=== PATIENT | male | born 1960 | race Caucasian/White ===

== ENCOUNTER 2020-06-11 22:19 | Emergency (ER) | payer MEDICARE, OTHER ==
[~2020-06-11] VITALS: Ht 157.5 cm; Wt 117.9 kg
[2020-06-11 23:34] LABS: BASOPHILS # (AUTO) 0.1 (0.0-0.1); BASOPHILS % 0.4 % (0.0-1.0); EOSINOPHILS # (AUTO) 0.1 (0.0-0.4); EOSINOPHILS % 0.6 % (0.0-6.0); HEMATOCRIT 30.5 % (38.2-49.6); HEMOGLOBIN 9.1 g/dL (14.0-18.0); LYMPHOCYTES # (AUTO) 0.9 (1.0-3.2); LYMPHOCYTES % 7.5 % (18.0-39.1); MEAN CORPUSCULAR HEMOGLOBIN 29.1 pg (28-32); MEAN CORPUSCULAR HGB CONC 29.8 g/dL (31-35); MEAN CORPUSCULAR VOLUME 97.4 fL (81-99); MONOCYTES # (AUTO) 0.9 (0.2-0.8); MONOCYTES % 7.2 % (4.4-11.3); NEUTROPHILS # (AUTO) 10.4 (2.1-6.9); NEUTROPHILS % 82.5 % (38.7-80.0); PLATELET COUNT 298 x10e3/uL (140-360); RED BLOOD COUNT 3.13 x10e6/uL (4.3-5.7); RED CELL DISTRIBUTION WIDTH 13.9 % (11.7-14.4)
--- NOTE | 2020-06-11 23:35 | Diagnostic Imaging Report ---
EXAMINATION: CHEST SINGLE (PORTABLE) INDICATION: ^s/p cpr ^[id number] ^[id number] ^Y COMPARISON: None FINDINGS: AP view TUBES and LINES: Tracheostomy tube in place with tip at the level of clavicles. LUNGS: Limited by low lung volumes and body habitus. Pulmonary gastric congestion and moderate interstitial edema. PLEURA: No significant pleural effusion or pneumothorax. HEART AND MEDIASTINUM: The cardiomediastinal silhouette is enlarged. BONES AND SOFT TISSUES: No acute osseous lesion. Soft tissues are unremarkable. UPPER ABDOMEN: No free air under the diaphragm. IMPRESSION: Limited as above. Enlarged cardiomediastinal silhouette, pulmonary vascular congestion, and moderate pulmonary edema. Underlying pneumonia cannot be excluded. Signed by: Dr. Juan Ramon Stephens MD on 06/11/2020 11:32 PM
[2020-06-11 23:38] LABS: INR 1.07; PROTHROMBIN TIME 14.4 seconds (11.9-14.5)
--- NOTE | 2020-06-11 23:38 | Emergency Department Note ---
History of Present Illnes History of Present Illness Chief Complaint: General Medicine Complaints History of Present Illness This is a 60 year old male RESENTS TO ED AAOX3 FOLLOWING REPORTED CARDIAC ARREST WITH 7 MINUTES OF CPR PERFORMED PER MEDICAL RESORT STAFF; MEDICAL RESORT NURSE STATES, "I COULDNT FIND HIS PULSE, SO I HAD NO OTHER OPTION BUT TO START CPR." PT REPORTS CHEST PAIN RELATED TO CHEST COMPRESSIONS, REPORTS INSTRUCTED STAFF TO STOP COMPRESSIONS;. EMS REPORTED PT DID NOT RESPOND TO STERNAL RUB ON THEIR ARRIVAL BUT BECAME ALERT WHEN THEY WERE MOVING HIM TO STRETCHER. 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 Any updates have been documented here. Past Medical History Recent Fever: No Clinical Suspicion of Infectio: No New/Unexplained Change in Ment: No Past Medical History: Hypertension, Diabetes Other Medical History: COVID RESPIRATORY FAILURE Other Surgery: TRACH PEG Social History Smoking Cessation: Unknown if ever smoked Counseling Performed: No Alcohol Use: None Any Illegal Drug Use: No Family History Family history of heart diseas: No Other family history HTN,DM Other Any Pre-Existing Lines (PICC,: Yes (PEG, MELGAR, TRACH) Review of Systems Review of Systems Constitutional: Reports no symptoms EENTM: Reports no symptoms Cardiovascular: Reports as per HPI Respiratory: Reports no symptoms Gastrointestinal: Reports no symptoms Genitourinary: Reports no symptoms Musculoskeletal: Reports no symptoms Integumentary: Reports no symptoms Neurological: Reports no symptoms Psychological: Reports no symptoms Endocrine: Reports no symptoms Hematological/Lymphatic: Reports no symptoms Physical Exam Related Data Allergies: Coded Allergies: No Known Allergies (Unverified , 06/11/20) Triage Vital Signs Vital Signs Date Time Temp Pulse Resp B/P (MAP) Pulse Ox O2 Delivery O2 Flow Rate FiO2 06/11/20 22:29 98.1 97 21 129/89 99 Trach Collar Vital signs reviewed: Yes Physical Exam CONSTITUTIONAL Constitutional: Present well-developed, Present well-nourished; Absent distressed HENT HENT: Present normocephalic, Present atraumatic, Present oropharynx clear/moist, Present nose normal HENT L/R: Present left ext ear normal, Present right ext ear normal EYES Eyes: Reports PERRL, Reports conjunctivae normal NECK Neck: Present ROM normal, Present other (TRACH PRESENT) PULMONARY Pulmonary: Present effort normal, Present rhonchi (BILATERAL), Present chest tenderness CARDIOVASCULAR Cardiovascular: Present regular rhythm, Present heart sounds normal, Present capillary refill normal, Present normal rate GASTROINTESTINAL Abdominal: Present soft, Present nontender, Present bowel sounds normal, Present other (PEG TUBE PRESENT) GENITOURINARY Genitourinary: Present exam deferred SKIN Skin: Present other (SACRAL DECUBITUS) MUSCULOSKELETAL Musculoskeletal: Present ROM normal NEUROLOGICAL Neurological: Present alert, Present oriented x 3, Present no gross motor or sensory deficits PSYCHOLOGICAL Psychological: Present mood/affect normal, Present judgement normal Results Laboratory Laboratory Laboratory Tests Test 06/12/20 00:20 06/11/20 23:00 Potassium Level 5.6 mmol/L (3.5-5.1) 5.8 mmol/L (3.5-5.1) White Blood Count 12.54 x10e3/uL (4.8-10.8) Red Blood Count 3.13 x10e6/uL (4.3-5.7) Hemoglobin 9.1 g/dL (14.0-18.0) Hematocrit 30.5 % (38.2-49.6) Mean Corpuscular Volume 97.4 fL (81-99) Mean Corpuscular Hemoglobin 29.1 pg (28-32) Mean Corpuscular Hemoglobin Concent 29.8 g/dL (31-35) Red Cell Distribution Width 13.9 % (11.7-14.4) Platelet Count 298 x10e3/uL (140-360) Neutrophils (%) (Auto) 82.5 % (38.7-80.0) Lymphocytes (%) (Auto) 7.5 % (18.0-39.1) Monocytes (%) (Auto) 7.2 % (4.4-11.3) Eosinophils (%) (Auto) 0.6 % (0.0-6.0) Basophils (%) (Auto) 0.4 % (0.0-1.0) Neutrophils # (Auto) 10.4 (2.1-6.9) Lymphocytes # (Auto) 0.9 (1.0-3.2) Monocytes # (Auto) 0.9 (0.2-0.8) Eosinophils # (Auto) 0.1 (0.0-0.4) Basophils # (Auto) 0.1 (0.0-0.1) Absolute Immature Granulocyte (auto 0.22 x10e3/uL (0-0.1) Prothrombin Time 14.4 seconds (11.9-14.5) Prothromb Time International Ratio 1.07 Activated Partial Thromboplast Time 31.1 seconds (23.8-35.5) Sodium Level 137 mmol/L (136-145) Chloride Level 102 mmol/L (98-107) Carbon Dioxide Level 28 mmol/L (22-29) Anion Gap 12.8 mmol/L (8-16) Blood Urea Nitrogen 20 mg/dL (7-26) Creatinine 0.73 mg/dL (0.72-1.25) Estimat Glomerular Filtration Rate > 60 ML/MIN (60-) BUN/Creatinine Ratio 27 (6-25) Glucose Level 220 mg/dL (74-118) Calcium Level 9.4 mg/dL (8.4-10.2) Total Bilirubin 0.2 mg/dL (0.2-1.2) Aspartate Amino Transf (AST/SGOT) 18 IU/L (5-34) Alanine Aminotransferase (ALT/SGPT) 18 IU/L (0-55) Alkaline Phosphatase 56 IU/L (40-150) Creatine Kinase 40 IU/L (30-200) Creatine Kinase MB 3.00 ng/mL (0-5.0) Troponin I 0.006 ng/mL (0-0.300) B-Type Natriuretic Peptide 31.4 pg/mL (0-100) Total Protein 7.0 g/dL (6.5-8.1) Albumin 2.5 g/dL (3.5-5.0) Globulin 4.5 g/dL (2.3-3.5) Albumin/Globulin Ratio 0.6 (0.8-2.0) Laboratory Tests Test 06/11/20 23:00 Imaging Imaging results reviewed: Yes Impressions Procedure: [id number] CT/CT CHEST W Exam Date: 06/12/20 Exam Time: 0120 REPORT STATUS: Signed EXAM: CT Chest WITH contrast (PE Protocol) INDICATION: ^PE PROTOCOL ^[id number] ^0120 ^Y COMPARISON: Chest x-ray on 06/11/2020 TECHNIQUE: Chest was scanned utilizing a multidetector helical scanner from the lung apex through the level of the diaphragm after administration of IV contrast. Thin section reconstructions were obtained with special concentration on the pulmonary arteries. Coronal and sagittal reformations were obtained. Dose modulation, iterative reconstruction, and/or weight based adjustment of the mA/kV was utilized to reduce the radiation dose to as low as reasonably achievable. Pulmonary embolism protocol was performed. IV CONTRAST: 100 mL of Omnipaque 370 COMPLICATIONS: None RADIATION DOSE: Total DLP: 504.5 mGy*cm Estimated effective dose: (DLP x 0.014 x size factor) mSv CTDIvol has been reviewed. It is below the limits set by the Radiation Protocol Committee (RPC). FINDINGS: LINES/ TUBES: Tracheostomy tube with tip within the upper trachea. Percutaneous gastrostomy tube. LUNGS AND AIRWAYS: No filling defect is identified within the pulmonary arteries to the segmental level. Pulmonary vascular congestion and moderate interstitial edema. Mild dependent atelectasis. Airways are normal. PLEURA: The pleural spaces are clear. HEART AND MEDIASTINUM: The visualized thyroid gland is normal. No mediastinal, hilar or axillary lymphadenopathy. Calcified right hilar lymph nodes. The heart is enlarged. There is no pericardial effusion. . Main pulmonary artery measures 3.7 cm in diameter, enlarged, suggestive of pulmonary hypertension. Atherosclerotic calcification of the thoracic aorta and coronary arteries. UPPER ABDOMEN: Cholecystectomy. Percutaneous gastrostomy tube in place with tip extending outside the [id number]. Partially seen nonspecific bilateral perinephric fat stranding. BONES: Nondisplaced fractures of the anterior left fifth and sixth ribs. Minimally displaced fractures of the anterior right fourth and fifth ribs. Nondisplaced fracture of the anterior right sixth rib. SOFT TISSUES: Unremarkable. IMPRESSION: No pulmonary emboli. Pulmonary vascular congestion and mild to moderate interstitial edema. Underlying pneumonia cannot be excluded. Bilateral rib fractures as above. No pneumothorax. Signed by: Dr. Juan Ramon Pettit MD on 06/12/2020 2:07 AM Dictated By: JUAN RAMON PETTIT MD 6 Transcribed By: WILDER on 06/12/20206 COPY TO: SHARMAINE PORTILLO MD~ Procedures 12 Lead ECG Interpretation ECG Interpretation : ECG: ECG 1 Fiber Designer: Interpreted by ED physician Date: Jun 11, 2020 Time: 23:24 Rhythm: sinus rhythm Rate: normal BPM: 96 ST segments normal: Yes T waves normal: Yes Q waves: V1, V2 Clinical Impression: abnormal ECG Assessment & Plan Medical Decision Making MDM PT S/P CPR AT [facility] CBC, CMP, EKG, CARDIAC ENZYMES, CXR ORDERED TO EVAL FOR MYOCARDIAL INFARCTION, ARRHYTHMIA, PNEUMONIA, PNEUMOTHORAX, BROKEN RIBS, ELECTROLYTE ABNORMALITY i spoke with dr pryor at [facility] and she accepts pt for admission Assessment & Plan Final Impression: (1) Cardiac arrest (2) Pneumonia (3) Rib fractures (4) Hyperkalemia Depart Disposition: TRANS TO OTHER [facility] Last Vital Signs Date Time Temp Pulse Resp B/P (MAP) Pulse Ox O2 Delivery O2 Flow Rate FiO2 06/11/20 22:29 98.1 97 21 129/89 99 Trach Collar SHARMAINE PORTILLO MD Jun 11, 2020 23:38
[2020-06-11 23:39] LABS: PARTIAL THROMBOPLASTIN TIME 31.1 seconds (23.8-35.5)
[2020-06-11 23:50] LABS: ALANINE AMINOTRANSFERASE 18 IU/L (0-55); ALBUMIN 2.5 g/dL (3.5-5.0); ALBUMIN/GLOBULIN RATIO 0.6 (0.8-2.0); ALKALINE PHOSPHATASE 56 IU/L (40-150); ANION GAP 12.8 mmol/L (8-16); BLOOD UREA NITROGEN 20 mg/dL (7-26); BUN/CREATININE RATIO 27 (6-25); CALCIUM 9.4 mg/dL (8.4-10.2); CARBON DIOXIDE 28 mmol/L (22-29); CHLORIDE 102 mmol/L (98-107); CREATINE KINASE 40 IU/L (30-200); CREATININE, SERUM 0.73 mg/dL (0.72-1.25); EST GLOMERULAR FILTRATION RATE > 60 ML/MIN (60-); GLUCOSE 220 mg/dL (74-118); POTASSIUM 5.8 mmol/L (3.5-5.1); SODIUM 137 mmol/L (136-145)
--- NOTE | 2020-06-12 | NUR ---
peep 0, rr 16, tv 450, 50%, PRVC Addendum: 06/12/20 at 0435 by VALERI setting verfified with RT and
[2020-06-12] MEDS ORDERED: IOPAMIDOL 370 MG/ML 200 ML INFUS..BTL INJ ONE (00:30)
[2020-06-12] MEDS ORDERED: SODIUM CHLORIDE 0.9% 50ML 50 ML ONE (00:30)
[2020-06-12] MEDS ORDERED: AZITHROMYCIN 500MG/NS 250 ML 250 ML IV ONE (02:00)
[2020-06-12] MEDS ORDERED: CEFTRIAXONE SOD 1 GM/NS 50 ML 50 ML IV ONE (02:00)
[2020-06-12] MEDS ORDERED: VANCOMYCIN 1GM/NS 250 ML 250 ML IV ONE (02:00)
--- NOTE | 2020-06-12 02:11 | Diagnostic Imaging Report ---
EXAM: CT Chest WITH contrast (PE Protocol) INDICATION: ^PE PROTOCOL ^[id number] ^0120 ^Y COMPARISON: Chest x-ray on 06/11/2020 TECHNIQUE: Chest was scanned utilizing a multidetector helical scanner from the lung apex through the level of the diaphragm after administration of IV contrast. Thin section reconstructions were obtained with special concentration on the pulmonary arteries. Coronal and sagittal reformations were obtained. Dose modulation, iterative reconstruction, and/or weight based adjustment of the mA/kV was utilized to reduce the radiation dose to as low as reasonably achievable. Pulmonary embolism protocol was performed. IV CONTRAST: 100 mL of Omnipaque 370 COMPLICATIONS: None RADIATION DOSE: Total DLP: 504.5 mGy*cm Estimated effective dose: (DLP x 0.014 x size factor) mSv CTDIvol has been reviewed. It is below the limits set by the Radiation Protocol Committee (RPC). FINDINGS: LINES/ TUBES: Tracheostomy tube with tip within the upper trachea. Percutaneous gastrostomy tube. LUNGS AND AIRWAYS: No filling defect is identified within the pulmonary arteries to the segmental level. Pulmonary vascular congestion and moderate interstitial edema. Mild dependent atelectasis. Airways are normal. PLEURA: The pleural spaces are clear. HEART AND MEDIASTINUM: The visualized thyroid gland is normal. No mediastinal, hilar or axillary lymphadenopathy. Calcified right hilar lymph nodes. The heart is enlarged. There is no pericardial effusion. . Main pulmonary artery measures 3.7 cm in diameter, enlarged, suggestive of pulmonary hypertension. Atherosclerotic calcification of the thoracic aorta and coronary arteries. UPPER ABDOMEN: Cholecystectomy. Percutaneous gastrostomy tube in place with tip extending outside the [id number]. Partially seen nonspecific bilateral perinephric fat stranding. BONES: Nondisplaced fractures of the anterior left fifth and sixth ribs. Minimally displaced fractures of the anterior right fourth and fifth ribs. Nondisplaced fracture of the anterior right sixth rib. SOFT TISSUES: Unremarkable. IMPRESSION: No pulmonary emboli. Pulmonary vascular congestion and mild to moderate interstitial edema. Underlying pneumonia cannot be excluded. Bilateral rib fractures as above. No pneumothorax. Signed by: Dr. Juan Ramon Stephens MD on 06/12/2020 2:07 AM
--- NOTE | 2020-06-12 05:03 | NUR ---
bladder scan performed per md request. 760cc noted on bladder scan. informed. pt instructed to atttempt to void. pt voided 250cc cloudy yellow urine. bladder scan repeated 509cc urine noted on bladder scan. informed c knott catheter ordered. Addendum: 06/12/20 at 0505 by [facility] note enter in error.
[2020-06-12 06:38] VITALS: BP 111/85
== END 2020-06-12 06:40 | disposition other institution (70) ==
LOC: ER 22:26
DX: I46.9 Cardiac arrest, cause unspecified (principal); J18.9 Pneumonia, unspecified organism; E87.5 Hyperkalemia; S22.43XA Multiple fractures of ribs, bilateral, initial encounter for closed fracture; R94.31 Abnormal electrocardiogram [ECG] [EKG]; E11.65 Type 2 diabetes mellitus with hyperglycemia; I10 Essential (primary) hypertension; Z20.828 Contact with and (suspected) exposure to other viral communicable diseases; Z93.0 Tracheostomy status
CPT/HCPCS: 36415; 71045; 71260; 80053; 82550; 82553; 83880; 84132; 84484; 85025; 85610; 85730; 87040; 93005; 94002; 99284; J0456; J0696; J3370; Q9967; U0002